=== PATIENT | female | born 1950 | race Caucasian/White ===

== ENCOUNTER 2017-05-22 12:11 | Day surgery (SDC) | payer OTHER ==
[2017-05-20 09:38] VITALS: BMI 35.0
--- NOTE | 2017-05-20 10:37 | PAT Medication Instructions ---
"Service Date May 20, 2017. Current Home Medication List Acetaminophen (Tylenol), 650 MG PO QID PRN for Pain Allopurinol (Zyloprim), 300 MG PO QAM Amlodipine (Norvasc), 5 MG PO QAM Aspirin (Aspirin Ec), 81 MG PO QAM Atorvastatin Calcium (Lipitor), 80 MG PO HS Bupropion (Wellbutrin Sr), 150 MG PO BID Cholecalciferol (Vitamin D), 200 INTUNIT PO QAM Clonidine Hcl (Catapres), 0.1 MG PO BID Ezetimibe (Zetia), 10 MG PO HS Ferrous Sulfate (Kp Ferrous Sulfate), 1 TAB PO BID Fluoxetine (Prozac), 10 MG PO QAM Hydroxyzine Hcl (Atarax), 25 MG PO HS Insulin Aspart (Novolog), 12 UNITS SQ breakfast Insulin Aspart (Novolog), 10 UNITS SQ lunch Insulin Aspart (Novolog), 12 UNITS SQ supper Insulin Glargine (Toujeo Solostar), 45 UNITS SQ lunch Ipratropium-Albuterol (Duoneb), 1 TREATMENT INH Q4H PRN for Shortness of Breath Levothyroxine Sodium (Synthroid), 125 MCG PO QAM Loratadine (Claritin), 10 MG PO QAM Lorazepam (Ativan), 0.5 MG PO TID PRN for prn Metoprolol Tartrate (Lopressor) (Lopressor), 12.5 MG PO BID Mirtazapine (Mirtazapine), 45 MG PO HS Multivitamin (Multivitamin), 1 TAB PO QAM Nystatin/Triamcinolone (Mycolog ||), 1 DOSE TOP BID PRN for prn Ofloxacin (Oph) (Ocuflox Oph Soln), 1 DROPS OP HS Pancrelipase (Lipase-Protease- (Creon), 24,000 UNIT PO TID Pantoprazole (Protonix), 40 MG PO QAM Vitamins C & E (Vitamin C), 500 MG PO BID Zolpidem Tartrate (Zolpidem Tartrate), 1 TAB PO HS Medication Instructions For Your Scheduled Surgery - Per Surgeon's Instructions: Aspirin (Aspirin Ec), 81 MG PO QAM - Hold the following medications 24 hours prior to surgery: Nystatin/Triamcinolone (Mycolog ||), 1 DOSE TOP BID PRN for prn - Hold the following medications the morning of surgery: Loratadine (Claritin), 10 MG PO QAM Multivitamin (Multivitamin), 1 TAB PO QAM Cholecalciferol (Vitamin D), 200 INTUNIT PO QAM Pancrelipase (Lipase-Protease- (Creon), 24,000 UNIT PO TID Vitamin C (Vitamin C), 500 MG PO BID Ferrous Sulfate (Kp Ferrous Sulfate), 1 TAB PO BID Insulin Aspart (Novolog), 12 UNITS SQ breakfast Insulin Aspart (Novolog), 10 UNITS SQ lunch - Take the following medications the morning of surgery with a sip of water OTHERWISE NOTHING TO EAT OR DRINK AFTER MIDNIGHT: Acetaminophen (Tylenol), 650 MG PO QID PRN for Pain (may take if needed up to 4 hours prior to surgery) Allopurinol (Zyloprim), 300 MG PO QAM Amlodipine (Norvasc), 5 MG PO QAM Fluoxetine (Prozac), 10 MG PO QAM Clonidine Hcl (Catapres), 0.1 MG PO BID Ipratropium-Albuterol (Duoneb), 1 TREATMENT INH Q4H PRN for Shortness of Breath Bupropion (Wellbutrin Sr), 150 MG PO BID Metoprolol Tartrate (Lopressor) (Lopressor), 12.5 MG PO BID Lorazepam (Ativan), 0.5 MG PO TID PRN for prn Pantoprazole (Protonix), 40 MG PO QAM Levothyroxine Sodium (Synthroid), 125 MCG PO QAM - Take the following medications as scheduled the night before surgery: Acetaminophen (Tylenol), 650 MG PO QID PRN for Pain Mirtazapine (Mirtazapine), 45 MG PO HS Ezetimibe (Zetia), 10 MG PO HS Hydroxyzine Hcl (Atarax), 25 MG PO HS Zolpidem Tartrate (Zolpidem Tartrate), 1 TAB PO HS Atorvastatin Calcium (Lipitor), 80 MG PO HS Clonidine Hcl (Catapres), 0.1 MG PO BID Ipratropium-Albuterol (Duoneb), 1 TREATMENT INH Q4H PRN for Shortness of Breath Bupropion (Wellbutrin Sr), 150 MG PO BID Metoprolol Tartrate (Lopressor) (Lopressor), 12.5 MG PO BID Lorazepam (Ativan), 0.5 MG PO TID PRN for prn Pancrelipase (Lipase-Protease- (Creon), 24,000 UNIT PO TID Vitamin C (Vitamin C), 500 MG PO BID Ferrous Sulfate (Kp Ferrous Sulfate), 1 TAB PO BID Ofloxacin (Oph) (Ocuflox Oph Soln), 1 DROPS OP HS Insulin Aspart (Novolog), 12 UNITS SQ supper Pt will likely be at [facility] prior to lunchtime, but in the case that she is not... -Check Blood Sugar. If Blood Sugar is GREATER THAN 150, take HALF of regular dose of: Insulin Glargine (Toujeo Solostar) -Check Blood Sugar. If Blood Sugar is LESS THAN 150, DO NOT TAKE ANY: Insulin Glargine (Toujeo Solostar) If you have any questions please call us at [phone] or [phone] or [phone]"
[~2017-05-22] VITALS: Ht 160 cm; Wt 90.2 kg
[~2017-05-22 12:11] MED LIST: ACET-1311 PO; ALLO300T2 PO; AMLO-110 PO; ASPI81TA28 PO; ATOR80TA PO; BUPR-79 PO; CHOL20009 PO; CLINDAMYCIN 600 MG/54 ML D5W IV SCH; CLR10 PO; CTP/1 PO; D5W AND 1/4NSS 1000 ML IV SCH; EZET10TA47 PO; FERR1TAB13 PO; FLUO10CA48 PO; HYDR-3124 PO; INSU1.2I SQ; IPRASOL4 INH; LEVO125T72 PO; LORA-741 PO; METO25TA56 PO; MULT-506 PO; NVLG SQ; NYSTCRE11 TOP; OFLO0.3S OP; PANC6000 PO; PANT40TA PO; RMRS/45 PO; SODIUM CHLORIDE 0.9% 1000ML 1,000 ML IV SCH; VITACAP26 PO; ZOLP5TAB6 PO
--- NOTE | 2017-05-22 13:03 | History and Physical ---
History & Physical Date May 22, 2017. Chief Complaint End stage renal disease History of Present Illness The patient is a 66 year old female with DMII, CKD IV, She had stenting of her right subclavian artery years ago with good results. She now has worsening renal function. She is requiring dialysis and is here for permcath insertion. Pt denies WHITE, dizziness/lightheadedness prior to syncopal episode, R hand claudication or cramping. Also denies fever, chills, recent illness, chest pain , palpitations, SOB, abd pain, N/V, rest pain, claudication, other complaints. Allergies Coded Allergies: Adhesives (Verified Allergy, Intermediate, RASH, 08/05/16) Soap (Verified Allergy, Intermediate, RASH, 08/05/16) Morphine (Verified Allergy, Mild, ineffective, 05/20/17) Cephalosporins (Verified Allergy, Unknown, UNKNOWN, 08/05/16) Codeine (Verified Allergy, Unknown, not sure, 05/20/17) Meperidine (Verified Allergy, Unknown, altered loc, 05/20/17) Nickel (Verified Allergy, Unknown, skin "funny", 05/20/17) Trazodone (Verified Adverse Reaction, Intermediate, AMNESIA, 08/05/16) Home Medications Scheduled Allopurinol (Zyloprim), 300 MG PO QAM Amlodipine (Norvasc), 5 MG PO QAM Aspirin (Aspirin Ec), 81 MG PO QAM Atorvastatin Calcium (Lipitor), 80 MG PO HS Bupropion (Wellbutrin Sr), 150 MG PO BID Cholecalciferol (Vitamin D), 200 INTUNIT PO QAM Clonidine Hcl (Catapres), 0.1 MG PO BID Ezetimibe (Zetia), 10 MG PO HS Ferrous Sulfate (Kp Ferrous Sulfate), 1 TAB PO BID Fluoxetine (Prozac), 10 MG PO QAM Hydroxyzine Hcl (Atarax), 25 MG PO HS Insulin Aspart (Novolog), 12 UNITS SQ breakfast Insulin Aspart (Novolog), 10 UNITS SQ lunch Insulin Aspart (Novolog), 12 UNITS SQ supper Insulin Glargine (Toujeo Solostar), 45 UNITS SQ lunch Levothyroxine Sodium (Synthroid), 125 MCG PO QAM Loratadine (Claritin), 10 MG PO QAM Metoprolol Tartrate (Lopressor) (Lopressor), 12.5 MG PO BID Mirtazapine (Mirtazapine), 45 MG PO HS Multivitamin (Multivitamin), 1 TAB PO QAM Ofloxacin (Oph) (Ocuflox Oph Soln), 1 DROPS OP HS Pancrelipase (Lipase-Protease- (Creon), 24,000 UNIT PO TID Pantoprazole (Protonix), 40 MG PO QAM Vitamins C & E (Vitamin C), 500 MG PO BID Zolpidem Tartrate (Zolpidem Tartrate), 1 TAB PO HS Scheduled PRN Acetaminophen (Tylenol), 650 MG PO QID PRN for Pain Ipratropium-Albuterol (Duoneb), 1 TREATMENT INH Q4H PRN for Shortness of Breath Lorazepam (Ativan), 0.5 MG PO TID PRN for prn Nystatin/Triamcinolone (Mycolog ||), 1 DOSE TOP BID PRN for prn Problem List Medical Problems: (1) Anemia due to chronic kidney disease (2) CKD (chronic kidney disease), stage IV (3) COPD, severe (4) Depression (5) Diabetic neuropathy (6) DM type 2 (diabetes mellitus, type 2) (7) GERD (gastroesophageal reflux disease) (8) HLD (hyperlipidemia) (9) HTN (hypertension) (10) DAYNA (obstructive sleep apnea) (11) Proliferative diabetic retinopathy (12) Subclavian artery stenosis, right Surgical Problems: (1) H/O repair of right rotator cuff (2) History of cataract surgery (3) History of hysterectomy (4) History of tubal ligation (5) S/P angioplasty with stent (6) S/P trigger finger release Surgical / Medical History Hx Cardiac Surgery: No Hx Abdominal Surgery: No (tubal ligation, vag hysterectomy) Hx Cancer Surgery: No Hx Thoracic Surgery: No Hx Orthopedic: Yes (orif left leg and right elbow and then hardware removed, trigger fingers) Hx Urinary Tract Surgery: No Past Medical/Surgical History: COPD, Depression, Diabetes, High Cholesterol, Kidney Disease, Thyroid Disease Family History No pertinent family history Social History Smoking Status: Former Smoker Hx Alcohol Use - Type & Amnt: No Hx Substance Use -Type & Amnt: No Review of Systems Respiratory: No cough, No cyanosis, No LOW, No hemoptysis, No orthopnea, No PND , No short of breath, No sputum production, No stridor, No wheezing, No dyspnea , No problem reported Cardiovascular: No chest pain, No chest tightness, No chest pressure, No palpitations, No syncope, No diaphoresis, No edema, No intermittent claudication , No orthopnea, No cyanosis, No mumur, No lightheadedness, No paroxysmal nocturnal dyspnea, No problem reported Gastrointestinal: No abdominal pain, No constipation, No diarrhea, No nausea, No vomiting, No anorexia, No appetite changes, No belching, No flatulence, No food intolerance, No hematemesis, No hemorrhoids, No hematochezia, No stool changes, No heartburn, No indigestion, No dysphagia, No rectal bleeding, No problem reported Neurologic: No dizziness, No weakness, No headache, No lethargy, No numbness, No paresthesia, No pre-existing deficit, No seizures, No tics, No tingling, No tremors, No vertigo, No memory loss, No LOC, No problem reported Psychiatric: + depression, No anxiety, No alcohol abuse, No auditory hallucinations, No drug abuse, No homicidal ideation, No mood changes, No suicidal ideation, No visual hallucinations, No problem reported Physical Exam Constitutional: General Apperance: overweight Level of Distress: NAD Ambulation: ambulating normally Psychiatric: Mental Status: active & alert, normal mood, normal affect Orientation: oriented except where noted, to time, to place, to person Memory: recent memory normal, remote memory normal Head: normocephalic, atraumatic Lungs: Auscultation: breath sounds normal Cardiovascular: Heart Auscultation: RRR Peripheral Pulses: Radial Pulse: normal on the left, normal on the right Ulnar Pulse: normal on the left, normal on the right Femoral Pulse: normal on the left, normal on the right Abdomen: Inspection & Palpation: soft Musculoskeletal: normal Extremities: Upper Right: no cyanosis, no edema, no varicosities, no palpable cord, no clubbing, no ulcers, no mottling Upper Left: no cyanosis, no edema, no varicosities, no palpable cord, no clubbing, no ulcers, no mottling Lower Right: no cyanosis, no edema, no varicosities, no palpable cord, no clubbing, no ulcers, no mottling Lower Left: no cyanosis, no edema, no varicosities, no palpable cord, no clubbing, no ulcers, no mottling Assessment and Plan Imp: End stage renal disease, not on dialysis Plan: Patient admitted for an insertion of a permcath. I have discussed the risks options and benefits of the procedure with the patient. The patient understands the risks options and benefits and agrees to the procedure.
[2017-05-22 13:09] LABS: BUN/CREATININE RATIO 10.5 (10-20); CALCIUM 8.9 mg/dl (8.5-10.1); CREATININE 4.2 mg/dl (0.60-1.20); POTASSIUM 4.9 mmol/L (3.5-5.1)
[2017-05-22 13:10] VITALS: BP 197/86; PULSE 82; TEMP 36.9; O2SAT 99; Ht 160 cm; Wt 90.2 kg
[2017-05-22] MEDS ORDERED: GLYCOPYRROLATE INJ 0.2 MG/ML VIAL ONE (13:22)
[2017-05-22] MEDS ORDERED: ONDANSETRON INJ 2 MG/ML 2 ML VIAL ONE (13:22)
[2017-05-22] MEDS ORDERED: NEOSTIGMINE METHYLSULFATE 5 MG/5 ML SYR ONE (13:22)
[2017-05-22] MEDS ORDERED: PROPOFOL IV EMULSION 10 MG/ML 20 ML VIAL IV ONE (13:22)
[2017-05-22] MEDS ORDERED: LIDOCAINE HCL 2% 2 ML VIAL (20MG/ML) ONE (13:22)
[2017-05-22] MEDS ORDERED: DEXAMETHASONE SOD INJ 4 MG/ML VIAL ONE (13:22)
[2017-05-22] MEDS ORDERED: ROCURONIUM BROMIDE 10 MG/ML 5 ML VIAL ONE (13:22)
[2017-05-22] MEDS ORDERED: FENTANYL CITRATE INJ 50 MCG/1 ML 2 ML VIAL ONE (13:29)
[2017-05-22] MEDS ORDERED: MIDAZOLAM HCL 1 MG/ML 2ML VIAL ONE (13:29)
[2017-05-22] MEDS ORDERED: KETAMINE HCL INJ 50 MG/ML 10 ML VIAL ONE (13:29)
[2017-05-22] MEDS ORDERED: ATROPINE SULFATE 0.1 MG/ML 5ML SYR IV PRN ×2 (14:45→15:00)
[2017-05-22] MEDS ORDERED: FENTANYL CITRATE INJ 50 MCG/1 ML 2 ML VIAL IV PRN ×2 (14:45→15:00)
[2017-05-22] MEDS ORDERED: EpHEDrine SULFATE INJ 50 MG/ML AMP IV PRN ×2 (14:45→15:00)
[2017-05-22] MEDS ORDERED: PROMETHAZINE HCL INJ 6.25 MG in SODIUM CHLORIDE 0.9% 50ML 50 ML IV PRN (14:45)
[2017-05-22] MEDS ORDERED: ONDANSETRON INJ 2 MG/ML 2 ML VIAL IV PRN ×2 (14:45→15:00)
[2017-05-22] MEDS ORDERED: HEPARIN SOD (PORCINE) 5000 UNIT/ML 1 ML VIAL ONE (14:58)
--- NOTE | 2017-05-22 15:42 | [facility] Operative Report ---
Operative Report Operative Date May 22, 2017. Pre-Operative Diagnosis End Stage Renal Disease Post-Operative Diagnosis Same Procedure(s) Performed Insertion of Perm Catheter, Right Internal Jugular Approach Ultrasound localization of Right Internal Jugular Vein Fluoroscopy for Positoning Surgeon Negra Admission Discharge Rn Surgeon(s) None Estimated Blood Loss 2 Findings tip in distal SVC Specimens None Anesthesia MAC Complication(s) None Disposition Recovery Room / PACU Indications This is a 66-year-old white female with end-stage renal disease in need of an access for dialysis. PermCath was recommended. She understood the risks options and benefits and agreed to go with this procedure. Description of Procedure Patient was takent to the angio suite and placed in the supine position. The right side of the neck and chest wall were prepped and draped in a sterile manner. Local anesthesia was then administered to the appropriate areas of the neck and chest wall. Ultrasound was then used to locate the right internal jugular vein. The vein compressed easily, had no filing defects, and was patent. The vein was then punctured under direct ultrasound imaging. A guidewire was then passed centrally under fluoroscopic imaging. A stab wound was then made in the anterior chest wall and a 19 cm permcath was passed from the stab wound on the chest wall to the puncture site on the neck. The puncture site was then dilated till the 14Fr peel away sheath was inserted. The permcath was then inserted through the sheath to a central position in the distal superior vena cava. The peel away sheath was then removed. The catheter was then sutured in place using nylon sutures. The puncture was then closed using a 4-0 Vicryl subcuticular suture. Dermabond was used for a dressing on the puncture site. Both ports aspirated and flushed easily and were then packed with heparin. A sterile dressing was applied to the catheter. The patient left the angio suite in good condition and tolerated the procedure well. I attest to the content of the Intraoperative Record and any orders documented therein. Any exceptions are noted below.
[2017-05-22] MEDS ORDERED: LABETALOL HCL IV 5 MG/ML 20ML IV ONE (15:55)
--- NOTE | 2017-05-22 15:59 | Anesthesiology Progress Note ---
Anesthesia Post Op Note Date & Time May 22, 2017 at 15:59 Vital Signs Pain Intensity: 0 Vital Signs Past 12 Hours Date Time Temp Pulse Resp B/P (MAP) Pulse Ox O2 Delivery O2 Flow Rate FiO2 05/22/17 13:10 36.9 82 20 197/86 (123) 99 Room Air Notes Mental Status: alert / awake / arousable, participated in evaluation Pt Amnestic to Procedure: Yes Nausea / Vomiting: adequately controlled Pain: adequately controlled Airway Patency, RR, SpO2: stable & adequate BP & HR: stable & adequate Hydration State: stable & adequate Anesthetic Complications: no major complications apparent
[2017-05-22 16:45] VITALS: BP 180/92; PULSE 83; TEMP 36.9; O2SAT 100
[2017-05-22 18:00] VITALS: BP 189/87; PULSE 80; TEMP 37; O2SAT 100
--- NOTE | 2017-05-22 18:58 | Discharge Instructions ---
Discharge Instructions Date of Service May 22, 2017. Visit Reason for Visit: Stage V Chronic Kidney Disease Discharge Discharge Diagnosis / Problem: End stage renal disease Discharge Goals Goal(s): Therapeutic intervention Activity Recommendations Activity Limitations: resume your previous activity Lifting Limitations: none Exercise/Sports Limitations: none Shower/Bathe: keep incision dry Anesthesia . Post Anesthesia Instructions: If you have had General Anesthesia or IV Sedation: * Do not drive today. * Resume driving when surgeon permits. * Do not make important decisions or sign legal documents today. * Call surgeon for: 1. Temperature elevations greater than 101 degrees F. 2. Uncontrollable pain. 3. Excessive bleeding. 4. Persistent nausea and vomiting. 5. Medication intolerance (nausea, vomiting or rash). * For nausea and vomiting use only clear liquids such as: tea, soda, bouillon until nausea subsides, then gradually increase diet as tolerated. * If you have any concerns or questions, call your surgeon's office. If physician is unavailable and it is an emergency, call 911 or go to the nearest emergency room. . Instructions / Follow-Up Instructions / Follow-Up Call [phone] with any questions or concerns. May use permcath for dialysis, call dialysis with questions about catheter care. SPECIAL CARE INSTRUCTIONS: Medications: * Continue to take your medications as directed. If you have been given a prescription for Plavix, please fill it immediately and take as directed. Incision Care: * Your puncture site may have some bruising and minor swelling for about one week. * You will have a small dressing covering your puncture site. You may remove the dressing after 24 hours and shower. You may let the warm soapy water run over it, but be sure to dry the puncture site well and keep it dry. * DO NOT IMMERSE THE INCISION IN A TUB/POOL/etc. UNTIL HEALED. * Puncture sites should be kept covered with a band-aid until it begins to heal. Restrictions: * Depending on whether you leg or arm was punctured to access the arteries, you will be required to lay flat, hold your arm still, or both, for about 4 hours after the procedure to prevent bleeding. * Limit your activity for the first 48 hours. You may walk and go up and down steps. Avoid excessive bending or movement at the puncture site. Possible Complications: * Excessive Swelling - after blood flow is improved you may notice increased swelling in the lower legs. This is a normal response. This usually depends on the amount of blockages in the leg, how long they have been there prior to your procedure and how much blood flow was restored. Elevating your legs will help to improve this. Please notify our office ([phone] ) if the swelling does not go away after lying in bed overnight. * Infection/Drainage/Bleeding - Drainage or bleeding from the puncture site should be minimal. If you have excessive bleeding or drainage, call our office ([phone]) right away. * Pain - You may experience some mild pain or soreness at your puncture site. If your pain does not improve, please contact our office ([phone]). Call your doctor and seek emergent treatment if you develop: * Temperature above 101 degrees * Any fever or chills * Any redness or purulent drainage from the puncture site * Any new dusky/blue colored toes or feet with coolness or sharp or aching pain. SKIN IRRITATION: * You may experience some redness and/or swelling in the area where radiation was administered. If any skin irritation occurs, please contact your family physician. FOLLOW UP VISIT: Keep any scheduled doctor appointments. Diet Recommendations Recommended Home Diet: resume previous diet Procedures Procedures Performed: Insertion of Perm Catheter, Right Internal Jugular Approach Ultrasound localization of Right Internal Jugular Vein Fluoroscopy for Positoning Pending Studies Studies pending at discharge: no Medical Emergencies . Who to Call and When: Medical Emergencies: If at any time you feel your situation is an emergency, please call 911 immediately. . Non-Emergent Contact Non-Emergency issues call your: Surgeon . . "Provider Documentation" section prepared by Toby Omer. .
[2017-05-23] MEDS ORDERED: LIDOCAINE HCL 1% 20 ML VIAL INFIL ONE (07:31)
[2017-05-23] MEDS ORDERED: HEPARIN SOD (PORCINE) 5000 UNIT/ML 1 ML VIAL IV ONE (07:31)
== END 2017-05-22 19:22 | disposition home or self-care (01) ==
LOC: C.ACU 12:11
PROVIDERS: ATTEND Surgery Vascular Surgery
DX: N18.6 End stage renal disease (principal); E11.22 Type 2 diabetes mellitus with diabetic chronic kidney disease; I12.0 Hypertensive chronic kidney disease with stage 5 chronic kidney disease or end stage renal disease; E78.5 Hyperlipidemia, unspecified; J44.9 Chronic obstructive pulmonary disease, unspecified; G47.33 Obstructive sleep apnea (adult) (pediatric); K21.9 Gastro-esophageal reflux disease without esophagitis; E11.40 Type 2 diabetes mellitus with diabetic neuropathy, unspecified; Z79.4 Long term (current) use of insulin; Z79.82 Long term (current) use of aspirin; Z79.899 Other long term (current) drug therapy; Z87.891 Personal history of nicotine dependence

== ENCOUNTER 2017-09-04 12:23 | Emergency (ER) | payer OTHER ==
[~2017-09-04] VITALS: Ht 160 cm; Wt 86.4 kg
[2017-09-04 12:23] VITALS: Ht 160 cm; Wt 86.4 kg
[~2017-09-04 12:23] MED LIST changes: -CLINDAMYCIN 600 MG/54 ML D5W IV SCH; -D5W AND 1/4NSS 1000 ML IV SCH; -SODIUM CHLORIDE 0.9% 1000ML 1,000 ML IV SCH
[2017-09-04] MEDS ORDERED: DEXTROSE 50% 50 ML SYR ONE (12:45)
--- NOTE | 2017-09-04 12:54 | EMERGENCY ROOM VISIT NOTE ---
History Report prepared by Henrry: Taiwo Boston Under the Supervision of: Dr. Hector Caruso D.O. First contact with patient: 12:41 Stated Complaint: HYPOGLYCEMIA History of Present Illness The patient is a 66 year old female who presents to the Emergency Room with complaints of hypoglycemia that was recorded recently. This history is limited secondary to the patient's hypoglycemia. Per EMS and the nursing staff, the patient presents from the [facility] unit secondary to a blood sugar level of 50. She is a Dialysis patient. Source of History: EMS, nursing staff History Limited By: other (Hypoglycemia) Onset: recently Position: other (global) Symptom Intensity: BSG 50 Quality: other (Hypoglycemia) Timing: constant Review of Systems ROS is limited secondary to the patient's hypoglycemia. Past Medical & Surgical Medical Problems: (1) Anemia due to chronic kidney disease (2) CKD (chronic kidney disease), stage IV (3) COPD, severe (4) Depression (5) Diabetic neuropathy (6) DM type 2 (diabetes mellitus, type 2) (7) GERD (gastroesophageal reflux disease) (8) HLD (hyperlipidemia) (9) HTN (hypertension) (10) DAYNA (obstructive sleep apnea) (11) Proliferative diabetic retinopathy (12) Subclavian artery stenosis, right Surgical Problems: (1) H/O repair of right rotator cuff (2) History of cataract surgery (3) History of hysterectomy (4) History of tubal ligation (5) S/P angioplasty with stent (6) S/P trigger finger release Family History No pertinent family history Social History Smoking Status: Former Smoker Alcohol Use: none Drug Use: none Housing Status: lives alone Occupation Status: unemployed Current/Historical Medications Scheduled Allopurinol (Zyloprim), 300 MG PO QAM Amino Acids (Liquacel), 30 ML PO DAILY Amlodipine (Norvasc), 5 MG PO QAM Aspirin (Aspirin Chewable), 81 MG PO DAILY Atorvastatin Calcium (Lipitor), 80 MG PO HS Bupropion (Wellbutrin Sr), 150 MG PO BID Cholecalciferol (Vitamin D), 2,000 INTUNIT PO QAM Clonidine Hcl (Catapres), 0.1 MG PO BID Ezetimibe (Zetia), 10 MG PO HS Fluoxetine (Prozac), 10 MG PO QAM Hydroxyzine Hcl (Atarax), 25 MG PO HS Insulin Aspart (Novolog), 12 UNITS SQ breakfast Insulin Aspart (Novolog), 10 UNITS SQ lunch Insulin Aspart (Novolog), 12 UNITS SQ supper Insulin Glargine (Toujeo Solostar), 50 UNITS SQ lunch Levothyroxine Sodium (Synthroid), 125 MCG PO QAM Lidocaine-Prilocaine (Lidocaine/Prilocaine), 1 APPLN TOP MWF Loratadine (Claritin), 10 MG PO QAM Metoprolol Tartrate (Lopressor) (Lopressor), 12.5 MG PO BID Mirtazapine (Mirtazapine), 45 MG PO HS Pancrelipase (Lipase-Protease- (Creon), 24,000 UNIT PO TID Pantoprazole (Protonix), 40 MG PO QAM Vitamin B Cmplx/Vitc/Folic Ac (Nephrocaps), 1 CAP PO DAILY Vitamins C & E (Vitamin C), 500 MG PO BID Zolpidem Tartrate (Zolpidem Tartrate), 5 MG PO HS Scheduled PRN Acetaminophen (Tylenol), 500 MG PO Q6 PRN for Pain or Fever Benzonatate (Tessalon Perles), 100 MG PO Q6 PRN for Cough Dextrose (Diabetic Use) (Insta-Glucose), 1 APPLN TOP UD PRN for SYMPTOMATIC HYPOGLYCEMIA Glucose-Vitamin C (Dex4), 1-2 TABS PO UD PRN for SYMPTOMATIC HYPOGLYCEMIA Guaifenesin Ext Rel (Mucinex Ext Rel), 600 MG PO BID PRN for COUGH/CONGESTION Ipratropium-Albuterol (Duoneb), 1 TREATMENT INH Q4H PRN for Shortness of Breath Loperamide Hcl (Imodium), 2 MG PO Q4 PRN for Diarrhea Lorazepam (Ativan), 0.5 MG PO TID PRN for Anxiety Nystatin (Nystatin), 1 APPLN TP BID PRN for EXCORIATION Oxycodone HCl (Oxycodone HCl), 5 MG PO Q4 PRN for Pain Polyethylene Glycol 3350 (Miralax), 17 GM PO DAILY PRN for Constipation Triamcinolone Acet (Triamcinolone Acetonide), 1 APPLN TOP BID PRN for IRRITATION Allergies Coded Allergies: Adhesives (Verified Allergy, Intermediate, RASH, 09/04/17) Soap (Verified Allergy, Intermediate, RASH, 05/22/17) Morphine (Verified Allergy, Mild, ineffective, 05/22/17) Cephalosporins (Verified Allergy, Unknown, UNKNOWN, 09/04/17) Codeine (Verified Allergy, Unknown, not sure, 09/04/17) Meperidine (Verified Allergy, Unknown, altered loc, 09/04/17) Nickel (Verified Allergy, Unknown, skin "funny", 09/04/17) Trazodone (Verified Adverse Reaction, Intermediate, AMNESIA, 09/04/17) Physical Exam Vital Signs Date Time Temp Pulse Resp B/P (MAP) Pulse Ox O2 Delivery O2 Flow Rate FiO2 09/04/17 17:22 36.3 75 18 185/110 95 09/04/17 17:21 75 185/110 95 Room Air 09/04/17 16:22 77 18 192/110 97 Room Air 09/04/17 16:20 181/155 09/04/17 14:37 67 97 09/04/17 14:32 09/04/17 14:23 69 96 Nasal Cannula 2.0 09/04/17 14:02 09/04/17 13:53 69 100 Nasal Cannula 2.0 09/04/17 13:23 68 16 135/101 92 Nasal Cannula 2.0 09/04/17 13:23 66 94 Nasal Cannula 2.0 09/04/17 13:20 66 09/04/17 13:09 135/101 09/04/17 12:42 76 16 161/97 94 Nasal Cannula 2.0 09/04/17 12:23 36.3 76 16 161/97 81 Room Air Physical Exam GENERAL: Patient is listless, difficult to arouse, but answers to loud verbal commands. EYES: The conjunctivae are clear. The pupils are round and reactive. EARS, NOSE, MOUTH AND THROAT: The nose is without any evidence of any deformity. Mucous membranes are dry tongue is midline NECK: The neck is nontender and supple. RESPIRATORY: Diminished lung sounds throughout all adams. CARDIOVASCULAR: Regular rate and rhythm noted there no murmurs rubs or gallops normal S1 normal S2 GASTROINTESTINAL: The abdomen is moderately distended but soft. Bowel sounds are present in all quadrants. Abdomen is nontender. No guarding or rigidity. PELVIS: The Pelvis is stable. No tenderness to palpation is noted. BACK: No midline tenderness or or step-off noted range of motion in flexion extension as well as rotation no signs of muscle spasm noted MUSCULOSKELETAL/EXTREMITIES: There is no evidence of gross deformity full range of motion is noted in the hips and shoulders SKIN: Pale and dry. There is no obvious evidence of any rash. Excoriations noted to bilateral lower extremities. There are no petechiae, pallor or cyanosis noted. NEUROLOGIC: Patient is awake alert and oriented x3 strength is symmetric patellar reflexes are 2+ bilaterally Medical Decision & Procedures ER Provider Diagnostic Interpretation: Radiology results as stated below per my review and radiologist interpretation: SINGLE VIEW CHEST CLINICAL HISTORY: Generalized abdominal pain. Hypoglycemia. FINDINGS: An AP, portable, upright chest radiograph is compared to study dated 08/05/2016. The examination is degraded by portable technique and patient rotation. A right internal jugular central venous catheter is new from previous. The tip projects over the SVC. The heart is enlarged and there is atherosclerotic calcification of the thoracic aorta. The pulmonary vasculature is noncongested. Linear atelectasis versus scarring is seen in the left midlung. Chronic interstitial thickening is unchanged. No airspace consolidation, large pleural effusion, or pneumothorax is seen. The skeletal structures are osteopenic. The bony thorax is grossly intact. IMPRESSION: Cardiomegaly with no acute cardiopulmonary abnormality. Electronically signed by: Lenny Xavier M.D. 09/04/2017 2:07 PM Dictated Date/Time: 09/04/2017 2:06 PM AP PELVIS AND LEFT HIP 3 VIEWS CLINICAL HISTORY: left hip pain COMPARISON STUDY: None FINDINGS: No acute fractures or dislocations are visualized. There are minor osteoarthritic changes present within the left hip. There are no erosive or destructive changes. IMPRESSION: 1. No acute fractures 2. No erosive or destructive changes identified 3. Minor age-related degenerative change Electronically signed by: Bogdan Sultana M.D. 09/04/2017 3:27 PM Dictated Date/Time: 09/04/2017 3:[address] HEAD WITHOUT CONTRAST (CT) CLINICAL HISTORY: Altered mental status COMPARISON STUDY: 02/27/2016 TECHNIQUE: Axial CT of the brain is performed from the vertex to the skull base. IV contrast was not administered for this examination. A dose lowering technique was utilized adhering to the principles of ALARA. CT DOSE: 1615.31 mGy.cm FINDINGS: No intra or extra-axial mass lesions are visualized. There is no CT evidence of acute cortical infarction. There is no evidence of midline shift. There is no acute hemorrhage. No calvarial fractures are visualized. There are moderate white matter hypodensities likely on a small vessel basis. There is an area of old right frontal encephalomalacia. There is no evidence of pathologic ventricular dilatation. Chronic sclerotic changes involve the left inferior mastoid. There is opacification of inferior mastoid air cell. IMPRESSION: 1. No acute intracranial findings 2. Old focus of right frontal encephalomalacia 3. Slightly progressive white matter disease likely a small vessel basis Electronically signed by: Bogdan Sultana M.D. 09/04/2017 3:24 PM Dictated Date/Time: 09/04/2017 3:22 PM CERVICAL SPINE W/O CLINICAL HISTORY: 66 years-old Female with altered. Acute altered mental status COMPARISON: CT cervical spine 05/20/2015. TECHNIQUE: Multiple axial CT images of the cervical spine were obtained without contrast. A dose lowering technique was utilized adhering to the principles of ALARA. FINDINGS: There is no acute fracture or subluxation of the cervical spine identified. 2 mm anterolisthesis C4 on C5 is likely on a degenerative basis. Schmorl's nodes are seen at C6-C7, unchanged. Severe intervertebral disc space narrowing at C5-C6 and C6-C7 with multilevel advanced facet arthropathy. Advanced degenerative changes are noted at C1-C2. Increased sclerosis of the left mastoid air cells redemonstrated with small left mastoid effusion, unchanged. Degenerative changes cause multilevel foraminal narrowing without definite severe central canal stenosis identified. At C4-C5, there are apparent mild erosive changes of the facet on the left which appears new from prior exam nicely seen on image 60 series 501 with mild widening of the joint spacer measuring up to 2 mm.. A right internal jugular catheter is partially imaged. No pneumothorax identified. There is atherosclerosis of the carotid bulbs bilaterally. Imaged posterior fossa is unremarkable. IMPRESSION: 1. No acute cervical spine fracture or subluxation identified. 2. Moderate erosive changes of the left facet joint at C4-C5 with mild widening of the joint space, new from prior study 05/20/2015. Underlying inflammatory arthropathy is a differential consideration. 3. Multilevel advanced discogenic degenerative changes and facet arthropathy as above. 2 mm anterolisthesis C4 on C5 is likely secondary to long-standing facet disease. The above report was generated using voice recognition software. It may contain grammatical, syntax or spelling errors. Electronically signed by: Shlomo Peters M.D. 09/04/2017 3:39 PM Dictated Date/Time: 09/04/2017 3:33 PM Laboratory Results 09/04/17 13:37 Red Blood Count 4.53, Mean Corpuscular Volume 92.5, Mean Corpuscular Hemoglobin 30.2, Mean Corpuscular Hemoglobin Concent 32.7, Mean Platelet Volume 11.3, Neutrophils (%) (Auto) 70.2, Lymphocytes (%) (Auto) 19.8, Monocytes (%) (Auto) 6.8, Eosinophils (%) (Auto) 2.6, Basophils (%) (Auto) 0.4, Neutrophils # (Auto) 4.01, Lymphocytes # (Auto) 1.13, Monocytes # (Auto) 0.39, Eosinophils # (Auto) 0.15, Basophils # (Auto) 0.02 09/04/17 13:37 Test 09/04/17 10:10 09/04/17 13:37 09/04/17 13:50 Urine Color DK YELLOW Urine Appearance CLOUDY (CLEAR) Urine pH 5.0 (4.5-7.5) Urine Specific Donnelly 1.026 (1.000-1.030) Urine Protein 4+ (NEG) Urine Glucose (UA) NEG (NEG) Urine Ketones NEG (NEG) Urine Occult Blood NEG (NEG) Urine Nitrite NEG (NEG) Urine Bilirubin NEG (NEG) Urine Urobilinogen NEG (NEG) Urine Leukocyte Esterase NEG (NEG) Urine WBC (Auto) 1-5 /hpf (0-5) Urine RBC (Auto) 0-4 /hpf (0-4) Urine Hyaline Casts (Auto) 1-5 /lpf (0-5) Urine Epithelial Cells (Auto) >30 /lpf (0-5) Urine Bacteria (Auto) NEG (NEG) White Blood Count 5.71 K/uL (4.8-10.8) Red Blood Count 4.53 M/uL (4.2-5.4) Hemoglobin 13.7 g/dL (12.0-16.0) Hematocrit 41.9 % (37-47) Mean Corpuscular Volume 92.5 fL (80-100) Mean Corpuscular Hemoglobin 30.2 pg (25-34) Mean Corpuscular Hemoglobin Concent 32.7 g/dl (32-36) Platelet Count 36 K/uL (130-400) Mean Platelet Volume 11.3 fL (7.4-10.4) Neutrophils (%) (Auto) 70.2 % Lymphocytes (%) (Auto) 19.8 % Monocytes (%) (Auto) 6.8 % Eosinophils (%) (Auto) 2.6 % Basophils (%) (Auto) 0.4 % Neutrophils # (Auto) 4.01 K/uL (1.4-6.5) Lymphocytes # (Auto) 1.13 K/uL (1.2-3.4) Monocytes # (Auto) 0.39 K/uL (0.11-0.59) Eosinophils # (Auto) 0.15 K/uL (0-0.5) Basophils # (Auto) 0.02 K/uL (0-0.2) RDW Standard Deviation 51.2 fL (36.4-46.3) RDW Coefficient of Variation 15.1 % (11.5-14.5) Immature Granulocyte % (Auto) 0.2 % Immature Granulocyte # (Auto) 0.01 K/uL (0.00-0.02) Platelet Estimate DECREASED Prothrombin Time 10.9 SECONDS (9.0-12.0) Prothromb Time International Ratio 1.0 (0.9-1.1) Activated Partial Thromboplast Time 26.4 SECONDS (21.0-31.0) Partial Thromboplastin Ratio 1.0 Anion Gap 11.0 mmol/L (3-11) Est Creatinine Clear Calc Drug Dose 10.8 ml/min Estimated GFR () 9.0 Estimated GFR (Non- 7.8 BUN/Creatinine Ratio 7.6 (10-20) Calcium Level 8.8 mg/dl (8.5-10.1) Total Bilirubin 0.4 mg/dl (0.2-1) Direct Bilirubin mg/dl (0-0.2) Aspartate Amino Transf (AST/SGOT) 36 U/L (15-37) Alanine Aminotransferase (ALT/SGPT) 36 U/L (12-78) Alkaline Phosphatase 155 U/L (45-117) Total Creatine Kinase 79 U/L (26-192) Creatine Kinase MB 1.9 ng/ml (0.5-3.6) Creatine Kinase MB Ratio 2.4 (0-3.0) Troponin I < 0.015 ng/ml (0-0.045) Total Protein 7.4 gm/dl (6.4-8.2) Albumin 3.6 gm/dl (3.4-5.0) Lipase 154 U/L (73-393) Chemistry Specimen Hemolysis Bedside Glucose 149 mg/dl (70-90) Laboratory results per my review. Medications Administered Medications (Trade) Dose Ordered Sig/Samantha Route Start Time Stop Time Status Last Admin Dose Admin Dextrose (Dextrose 50% 50ML Syringe) 50 ml STK-MED ONCE .ROUTE 09/04/17 12:45 09/04/17 12:46 DC 09/04/17 12:57 50 ML ECG Indication: altered mental status Rate (beats per minute): 70 Rhythm: normal sinus Findings: no ectopy, other (No STS abnormalities) Comparison ECG Date: 08/07/16 Change: no significant change ED Course 1241: The patient was evaluated in room C7. A complete history and physical examination were performed. 1423: The patient is now much more awake and is complaining of hip pain. Medical Decision Differential diagnosis: Etiologies such as metabolic, infection, hypoglycemia, electrolyte abnormalities , cardiac sources, intracerebral event, toxicologic, neurologic, as well as others were entertained. Nursing notes reviewed. Additional history is obtained from the prehospital personnel. The patient's group home was also contacted about the patient's condition and her previous mental status. The patient is a 66-year-old female who has a history of diabetes who presented to the emergency department for an evaluation of altered mental status. The patient was found to have significant hypoglycemia. She was treated with oral as well as IV dextrose in the emergency department. She was reevaluated multiple times. On subsequent reevaluation she was significantly improved. I discussed the patient's laboratory and radiographic studies with her. She was able to be discharged back to her group home. She was encouraged to continue all medications as prescribed and not skip any meals. She was also encouraged to return to the emergency department immediately if symptoms change worsen or the need arises. I discussed her case with the emergency department upper caser as well. She was able to contact patient's group home to ensure that they were comfortable with the patient returning at this time. Medication Reconcilliation Current Medication List: was personally reviewed by me Blood Pressure Screening Patient's blood pressure: Normal blood pressure Impression Primary Impression: Altered mental status Additional Impressions: Hypoglycemia Thrombocytopenia Scribe Attestation The scribe's documentation has been prepared under my direction and personally reviewed by me in its entirety. I confirm that the note above accurately reflects all work, treatment, procedures, and medical decision making performed by me. Departure Information Dispostion Home / Self-Care Referrals Mariam Moore C.R.N.P. (PCP) Forms HOME CARE DOCUMENTATION FORM, IMPORTANT VISIT INFORMATION, WORK / SCHOOL INSTRUCTIONS Patient Instructions ED Diabetes Hypoglycemia Insulin React, [facility], Thrombocytopenia Additional Instructions Follow-up with your family for reevaluation. Continue all medications as prescribed. Do not miss any meals. I would also recommend a follow-up appointment with your family doctor to discuss the findings were noted on your head CT and your neck CT today. I would also recommend a repeat CBC because her platelet count was very low today. It was low in the past and will require a recheck to ensure that it is returning back to normal. Problem Qualifiers
[2017-09-04 14:01] LABS: PROTHROMBIN TIME (PATIENT) 10.9 SECONDS (9.0-12.0)
[2017-09-04 14:08] LABS: HEMATOCRIT 41.9 % (37-47); MEAN CELL VOLUME 92.5 fL (80-100); MEAN CORPUSCULAR HEMOGLOBIN 30.2 pg (25-34); MEAN CORPUSCULAR HGB CONC 32.7 g/dl (32-36); MEAN PLATELET VOLUME 11.3 fL (7.4-10.4); PLATELET COUNT 36 K/uL (130-400); RED BLOOD COUNT 4.53 M/uL (4.2-5.4); WHITE BLOOD COUNT 5.71 K/uL (4.8-10.8)
--- NOTE | 2017-09-04 14:08 | DIAGNOSTIC IMAGING REPORT ---
SINGLE VIEW CHEST CLINICAL HISTORY: Generalized abdominal pain. Hypoglycemia. FINDINGS: An AP, portable, upright chest radiograph is compared to study dated 08/05/2016. The examination is degraded by portable technique and patient rotation. A right internal jugular central venous catheter is new from previous. The tip projects over the SVC. The heart is enlarged and there is atherosclerotic calcification of the thoracic aorta. The pulmonary vasculature is noncongested. Linear atelectasis versus scarring is seen in the left midlung. Chronic interstitial thickening is unchanged. No airspace consolidation, large pleural effusion, or pneumothorax is seen. The skeletal structures are osteopenic. The bony thorax is grossly intact. IMPRESSION: Cardiomegaly with no acute cardiopulmonary abnormality. Electronically signed by: Lenny Xavire M.D. 09/04/2017 2:07 PM Dictated Date/Time: 09/04/2017 2:06 PM
[2017-09-04 14:11] LABS: BASO % 0.4 %; BASO ABS # 0.02 K/uL (0-0.2); COMPLETE YES; EOS % 2.6 %; IG% 0.2 %; LYMPH % 19.8 %; LYMPH ABS # 1.13 K/uL (1.2-3.4); MONO % 6.8 %; NEUT % 70.2 %; PLT ESTIMATE DECREASED
[2017-09-04 14:20] LABS: ALKALINE PHOSPHATASE 155 U/L (45-117); ALT/SGPT 36 U/L (12-78); AST/SGOT 36 U/L (15-37); BLOOD UREA NITROGEN 40 mg/dl (7-18); BUN/CREATININE RATIO 7.6 (10-20); CALCIUM 8.8 mg/dl (8.5-10.1); CARBON DIOXIDE 27 mmol/L (21-32); CHLORIDE 99 mmol/L (98-107); CKMB/CK RATIO 2.4 (0-3.0); CREATININE 5.28 mg/dl (0.60-1.20); GLUCOSE 157 mg/dl (70-99); POTASSIUM 4.3 mmol/L (3.5-5.1); SODIUM 137 mmol/L (136-145)
[2017-09-04 14:21] LABS: URINE APPEARANCE CLOUDY (CLEAR); URINE BILIRUBIN NEG (NEG); URINE COLOR DK YELLOW; URINE EPITHELIAL CELL AUTO >30 /lpf (0-5); URINE NITRITE NEG (NEG); URINE SPECIFIC GRAVITY 1.026 (1.000-1.030); UROBILINOGEN NEG (NEG); ZZURINE CULT IF INDIC CATH NO
[2017-09-04 14:25] LABS: MANUAL MICROSCOPIC REQUIRED? NO; REVIEW REQ? NO
[2017-09-04] MEDS ORDERED: B-CO1CAP17 PO (14:28)
[2017-09-04] MEDS ORDERED: AMINLIQ31 PO (14:28)
[2017-09-04] MEDS ORDERED: BENZ100C84 PO (14:28)
[2017-09-04] MEDS ORDERED: DEXT40GE TOP (14:28)
[2017-09-04] MEDS ORDERED: LIDO1CRE16 TOP (14:28)
[2017-09-04] MEDS ORDERED: DEXT4CHW64 PO (14:28)
[2017-09-04] MEDS ORDERED: ASPCH81X PO (14:28)
[2017-09-04] MEDS ORDERED: POLY335019 PO (14:28)
[2017-09-04] MEDS ORDERED: IMD/2 PO (14:28)
[2017-09-04] MEDS ORDERED: RXC/5 PO (14:28)
[2017-09-04] MEDS ORDERED: ACET-1256 PO (14:28)
[2017-09-04] MEDS ORDERED: NYSCR15 TP (14:28)
[2017-09-04] MEDS ORDERED: GUAI1TAB55 PO (14:28)
[2017-09-04] MEDS ORDERED: TRMCR115 TOP (14:30)
--- NOTE | 2017-09-04 15:25 | DIAGNOSTIC IMAGING REPORT ---
CT HEAD WITHOUT CONTRAST (CT) CLINICAL HISTORY: Altered mental status COMPARISON STUDY: 02/27/2016 TECHNIQUE: Axial CT of the brain is performed from the vertex to the skull base. IV contrast was not administered for this examination. A dose lowering technique was utilized adhering to the principles of ALARA. CT DOSE: 1615.31 mGy.cm FINDINGS: No intra or extra-axial mass lesions are visualized. There is no CT evidence of acute cortical infarction. There is no evidence of midline shift. There is no acute hemorrhage. No calvarial fractures are visualized. There are moderate white matter hypodensities likely on a small vessel basis. There is an area of old right frontal encephalomalacia. There is no evidence of pathologic ventricular dilatation. Chronic sclerotic changes involve the left inferior mastoid. There is opacification of inferior mastoid air cell. IMPRESSION: 1. No acute intracranial findings 2. Old focus of right frontal encephalomalacia 3. Slightly progressive white matter disease likely a small vessel basis Electronically signed by: Bogdan Sultana M.D. 09/04/2017 3:24 PM Dictated Date/Time: 09/04/2017 3:22 PM
--- NOTE | 2017-09-04 15:28 | DIAGNOSTIC IMAGING REPORT ---
AP PELVIS AND LEFT HIP 3 VIEWS CLINICAL HISTORY: left hip pain COMPARISON STUDY: None FINDINGS: No acute fractures or dislocations are visualized. There are minor osteoarthritic changes present within the left hip. There are no erosive or destructive changes. IMPRESSION: 1. No acute fractures 2. No erosive or destructive changes identified 3. Minor age-related degenerative change Electronically signed by: Bogdan Sultana M.D. 09/04/2017 3:27 PM Dictated Date/Time: 09/04/2017 3:26 PM
--- NOTE | 2017-09-04 15:40 | DIAGNOSTIC IMAGING REPORT ---
CERVICAL SPINE W/O CLINICAL HISTORY: 66 years-old Female with altered. Acute altered mental status COMPARISON: CT cervical spine 05/20/2015. TECHNIQUE: Multiple axial CT images of the cervical spine were obtained without contrast. A dose lowering technique was utilized adhering to the principles of ALARA. FINDINGS: There is no acute fracture or subluxation of the cervical spine identified. 2 mm anterolisthesis C4 on C5 is likely on a degenerative basis. Schmorl's nodes are seen at C6-C7, unchanged. Severe intervertebral disc space narrowing at C5-C6 and C6-C7 with multilevel advanced facet arthropathy. Advanced degenerative changes are noted at C1-C2. Increased sclerosis of the left mastoid air cells redemonstrated with small left mastoid effusion, unchanged. Degenerative changes cause multilevel foraminal narrowing without definite severe central canal stenosis identified. At C4-C5, there are apparent mild erosive changes of the facet on the left which appears new from prior exam nicely seen on image 60 series 501 with mild widening of the joint spacer measuring up to 2 mm.. A right internal jugular catheter is partially imaged. No pneumothorax identified. There is atherosclerosis of the carotid bulbs bilaterally. Imaged posterior fossa is unremarkable. IMPRESSION: 1. No acute cervical spine fracture or subluxation identified. 2. Moderate erosive changes of the left facet joint at C4-C5 with mild widening of the joint space, new from prior study 05/20/2015. Underlying inflammatory arthropathy is a differential consideration. 3. Multilevel advanced discogenic degenerative changes and facet arthropathy as above. 2 mm anterolisthesis C4 on C5 is likely secondary to long-standing facet disease. The above report was generated using voice recognition software. It may contain grammatical, syntax or spelling errors. Electronically signed by: Shlomo Peters M.D. 09/04/2017 3:39 PM Dictated Date/Time: 09/04/2017 3:33 PM
[2017-09-04 17:22] VITALS: BP 185/110; PULSE 75; TEMP 36.3; O2SAT 95
== END 2017-09-04 17:23 | disposition home or self-care (01) ==
LOC: EDBD 12:23 → C.EDC 12:25
DX: R41.82 Altered mental status, unspecified (principal); E11.649 Type 2 diabetes mellitus with hypoglycemia without coma; D69.6 Thrombocytopenia, unspecified; E11.3591 Type 2 diabetes mellitus with proliferative diabetic retinopathy without macular edema, right eye; E11.40 Type 2 diabetes mellitus with diabetic neuropathy, unspecified; I12.9 Hypertensive chronic kidney disease with stage 1 through stage 4 chronic kidney disease, or unspecified chronic kidney disease; E11.22 Type 2 diabetes mellitus with diabetic chronic kidney disease; E78.5 Hyperlipidemia, unspecified; F32.9 Major depressive disorder, single episode, unspecified; K21.9 Gastro-esophageal reflux disease without esophagitis; N18.4 Chronic kidney disease, stage 4 (severe); J44.9 Chronic obstructive pulmonary disease, unspecified; Z87.891 Personal history of nicotine dependence; Z99.2 Dependence on renal dialysis; Z98.49 Cataract extraction status, unspecified eye; Z90.710 Acquired absence of both cervix and uterus; Z98.51 Tubal ligation status; Z98.890 Other specified postprocedural states; Z79.4 Long term (current) use of insulin; Z79.82 Long term (current) use of aspirin; Z79.899 Other long term (current) drug therapy

== ENCOUNTER 2017-09-23 08:41 | Day surgery (SDC) | payer OTHER ==
[~2017-09-23] VITALS: Ht 160 cm; Wt 85.0 kg
--- NOTE | 2017-09-23 06:34 | History and Physical ---
History & Physical Date of Service Sep 23, 2017. History & Physical CCf: End stage renal disease, functioning fistula History of Present Illness The patient is a 66 year old female with DMII, CKD IV, She had stenting of her right subclavian artery years ago with good results. She now has worsening renal function. She had a permcath inserted for dialysis. She has a functioning fistula. She is her for removal of the permcath. Pt denies WHITE, dizziness/lightheadedness prior to syncopal episode, R hand claudication or cramping. Also denies fever, chills, recent illness, chest pain, palpitations, SOB, abd pain, N/V, rest pain, claudication, other complaints. Allergies Coded Allergies: Adhesives (Verified Allergy, Intermediate, RASH, 08/05/16) Soap (Verified Allergy, Intermediate, RASH, 08/05/16) Morphine (Verified Allergy, Mild, ineffective, 05/20/17) Cephalosporins (Verified Allergy, Unknown, UNKNOWN, 08/05/16) Codeine (Verified Allergy, Unknown, not sure, 05/20/17) Meperidine (Verified Allergy, Unknown, altered loc, 05/20/17) Nickel (Verified Allergy, Unknown, skin "funny", 05/20/17) Trazodone (Verified Adverse Reaction, Intermediate, AMNESIA, 08/05/16) Home Medications Scheduled Allopurinol (Zyloprim), 300 MG PO QAM Amlodipine (Norvasc), 5 MG PO QAM Aspirin (Aspirin Ec), 81 MG PO QAM Atorvastatin Calcium (Lipitor), 80 MG PO HS Bupropion (Wellbutrin Sr), 150 MG PO BID Cholecalciferol (Vitamin D), 200 INTUNIT PO QAM Clonidine Hcl (Catapres), 0.1 MG PO BID Ezetimibe (Zetia), 10 MG PO HS Ferrous Sulfate (Kp Ferrous Sulfate), 1 TAB PO BID Fluoxetine (Prozac), 10 MG PO QAM Hydroxyzine Hcl (Atarax), 25 MG PO HS Insulin Aspart (Novolog), 12 UNITS SQ breakfast Insulin Aspart (Novolog), 10 UNITS SQ lunch Insulin Aspart (Novolog), 12 UNITS SQ supper Insulin Glargine (Toujeo Solostar), 45 UNITS SQ lunch Levothyroxine Sodium (Synthroid), 125 MCG PO QAM Loratadine (Claritin), 10 MG PO QAM Metoprolol Tartrate (Lopressor) (Lopressor), 12.5 MG PO BID Mirtazapine (Mirtazapine), 45 MG PO HS Multivitamin (Multivitamin), 1 TAB PO QAM Ofloxacin (Oph) (Ocuflox Oph Soln), 1 DROPS OP HS Pancrelipase (Lipase-Protease- (Creon), 24,000 UNIT PO TID Pantoprazole (Protonix), 40 MG PO QAM Vitamins C & E (Vitamin C), 500 MG PO BID Zolpidem Tartrate (Zolpidem Tartrate), 1 TAB PO HS Scheduled PRN Acetaminophen (Tylenol), 650 MG PO QID PRN for Pain Ipratropium-Albuterol (Duoneb), 1 TREATMENT INH Q4H PRN for Shortness of Breath Lorazepam (Ativan), 0.5 MG PO TID PRN for prn Nystatin/Triamcinolone (Mycolog ||), 1 DOSE TOP BID PRN for prn Problem List Medical Problems: (1) Anemia due to chronic kidney disease (2) CKD (chronic kidney disease), stage IV (3) COPD, severe (4) Depression (5) Diabetic neuropathy (6) DM type 2 (diabetes mellitus, type 2) (7) GERD (gastroesophageal reflux disease) (8) HLD (hyperlipidemia) (9) HTN (hypertension) (10) DAYNA (obstructive sleep apnea) (11) Proliferative diabetic retinopathy (12) Subclavian artery stenosis, right Surgical Problems: (1) H/O repair of right rotator cuff (2) History of cataract surgery (3) History of hysterectomy (4) History of tubal ligation (5) S/P angioplasty with stent (6) S/P trigger finger release Surgical / Medical History Hx Cardiac Surgery: No Hx Abdominal Surgery: No (tubal ligation, vag hysterectomy) Hx Cancer Surgery: No Hx Thoracic Surgery: No Hx Orthopedic: Yes (orif left leg and right elbow and then hardware removed, trigger fingers) Hx Urinary Tract Surgery: No Past Medical/Surgical History: COPD, Depression, Diabetes, High Cholesterol, Kidney Disease, Thyroid Disease Family History No pertinent family history Social History Smoking Status: Former Smoker Hx Alcohol Use - Type & Amnt: No Hx Substance Use -Type & Amnt: No Review of Systems Respiratory: No cough, No cyanosis, No LOW, No hemoptysis, No orthopnea, No PND , No short of breath, No sputum production, No stridor, No wheezing, No dyspnea , No problem reported Cardiovascular: No chest pain, No chest tightness, No chest pressure, No palpitations, No syncope, No diaphoresis, No edema, No intermittent claudication , No orthopnea, No cyanosis, No mumur, No lightheadedness, No paroxysmal nocturnal dyspnea, No problem reported Gastrointestinal: No abdominal pain, No constipation, No diarrhea, No nausea, No vomiting, No anorexia, No appetite changes, No belching, No flatulence, No food intolerance, No hematemesis, No hemorrhoids, No hematochezia, No stool changes, No heartburn, No indigestion, No dysphagia, No rectal bleeding, No problem reported Neurologic: No dizziness, No weakness, No headache, No lethargy, No numbness, No paresthesia, No pre-existing deficit, No seizures, No tics, No tingling, No tremors, No vertigo, No memory loss, No LOC, No problem reported Psychiatric: + depression, No anxiety, No alcohol abuse, No auditory hallucinations, No drug abuse, No homicidal ideation, No mood changes, No suicidal ideation, No visual hallucinations, No problem reported Physical Exam Constitutional: General Apperance: overweight Level of Distress: NAD Ambulation: ambulating normally Psychiatric: Mental Status: active & alert, normal mood, normal affect Orientation: oriented except where noted, to time, to place, to person Memory: recent memory normal, remote memory normal Head: normocephalic, atraumatic Lungs: Auscultation: breath sounds normal Cardiovascular: Heart Auscultation: RRR Peripheral Pulses: Radial Pulse: normal on the left, normal on the right Ulnar Pulse: normal on the left, normal on the right Femoral Pulse: normal on the left, normal on the right Abdomen: Inspection & Palpation: soft Musculoskeletal: normal Extremities: Upper Right: no cyanosis, no edema, no varicosities, no palpable cord, no clubbing, no ulcers, no mottling Upper Left: no cyanosis, no edema, no varicosities, no palpable cord, no clubbing, no ulcers, no mottling Lower Right: no cyanosis, no edema, no varicosities, no palpable cord, no clubbing, no ulcers, no mottling Lower Left: no cyanosis, no edema, no varicosities, no palpable cord, no clubbing, no ulcers, no mottling Assessment and Plan Imp: End stage renal disease, functioning fistula Plan: Patient admitted for removal of a permcath. I have discussed the risks options and benefits of the procedure with the patient. The patient understands the risks options and benefits and agrees to the procedure.
[~2017-09-23 08:41] MED LIST changes: +ACET-1256 PO; -ACET-1311 PO; +AMINLIQ31 PO; +ASPCH81X PO; -ASPI81TA28 PO; +B-CO1CAP17 PO; +BENZ100C84 PO; +DEXT40GE TOP; +DEXT4CHW64 PO; -FERR1TAB13 PO; +GUAI1TAB55 PO; +IMD/2 PO; +LIDO1CRE16 TOP; -MULT-506 PO; +NYSCR15 TP; -NYSTCRE11 TOP; -OFLO0.3S OP; +POLY335019 PO; +RXC/5 PO; +TRMCR115 TOP
[2017-09-23 09:28] VITALS: BP 109/59; PULSE 71; TEMP 36.6; O2SAT 100; Ht 160 cm; Wt 85.0 kg
--- NOTE | 2017-09-23 09:39 | History & Physical Bridge Note ---
H&P Re-Evaluation Bridge Note: I have examined the patient, reviewed the History & Physical and in the interval since the performance of the History & Physical I have noted the following changes of clinical significance: No changes noted
[2017-09-23 10:00] VITALS: BP 109/59; PULSE 71; TEMP 36.6; O2SAT 100
[2017-09-23] MEDS ORDERED: LIDOCAINE HCL 1% 20 ML VIAL INJ ONE (10:24)
[2017-09-23] MEDS ORDERED: ARISTA ABSORBABLE HEMOSTAT 3GM TOP ONE (10:28)
--- NOTE | 2017-09-23 10:29 | [facility] Post Operative Brief Note ---
Immediate Operative Summary Operative Date Sep 23, 2017. Pre-Operative Diagnosis functioning fistula Post-Operative Diagnosis same Procedure(s) Performed Removal Of Perm Catheter Surgeon Dr. Omer English Language Learner Tutor Surgeon(s) Charisse Upton MD Estimated Blood Loss 2 ml Findings cuff and catheter removed Specimens A. explanted perm catheter Anesthesia Local Complication(s) None Disposition
--- NOTE | 2017-09-23 10:30 | Discharge Instructions ---
Discharge Instructions Date of Service Sep 23, 2017. Visit Reason for Visit: End Stage Renal Disease -On Hemodialysis Discharge Discharge Diagnosis / Problem: Functioning fistula Discharge Goals Goal(s): Therapeutic intervention Activity Recommendations Activity Limitations: per Instructions/Follow-up section Shower/Bathe: tomorrow Anesthesia . Post Anesthesia Instructions: If you have had General Anesthesia or IV Sedation: * Do not drive today. * Resume driving when surgeon permits. * Do not make important decisions or sign legal documents today. * Call surgeon for: 1. Temperature elevations greater than 101 degrees F. 2. Uncontrollable pain. 3. Excessive bleeding. 4. Persistent nausea and vomiting. 5. Medication intolerance (nausea, vomiting or rash). * For nausea and vomiting use only clear liquids such as: tea, soda, bouillon until nausea subsides, then gradually increase diet as tolerated. * If you have any concerns or questions, call your surgeon's office. If physician is unavailable and it is an emergency, call 911 or go to the nearest emergency room. . Instructions / Follow-Up Instructions / Follow-Up SPECIAL CARE INSTRUCTIONS: Medications: * Continue to take your medications as directed. If you have been given a prescription for Plavix, please fill it immediately and take as directed. Incision Care: * Your puncture site may have some bruising and minor swelling for about one week. * You will have a small dressing covering your puncture site. You may remove the dressing after 24 hours and shower. You may let the warm soapy water run over it, but be sure to dry the puncture site well and keep it dry. * DO NOT IMMERSE THE INCISION IN A TUB/POOL/etc. UNTIL HEALED. * Puncture sites should be kept covered with a band-aid until it begins to heal. Restrictions: * Depending on whether you leg or arm was punctured to access the arteries, you will be required to lay flat, hold your arm still, or both, for about 4 hours after the procedure to prevent bleeding. * Limit your activity for the first 48 hours. You may walk and go up and down steps. Avoid excessive bending or movement at the puncture site. Possible Complications: * Excessive Swelling - after blood flow is improved you may notice increased swelling in the lower legs. This is a normal response. This usually depends on the amount of blockages in the leg, how long they have been there prior to your procedure and how much blood flow was restored. Elevating your legs will help to improve this. Please notify our office ([phone] ) if the swelling does not go away after lying in bed overnight. * Infection/Drainage/Bleeding - Drainage or bleeding from the puncture site should be minimal. If you have excessive bleeding or drainage, call our office ([phone]) right away. * Pain - You may experience some mild pain or soreness at your puncture site. If your pain does not improve, please contact our office ([phone]). Call your doctor and seek emergent treatment if you develop: * Temperature above 101 degrees * Any fever or chills * Any redness or purulent drainage from the puncture site * Any new dusky/blue colored toes or feet with coolness or sharp or aching pain. SKIN IRRITATION: * You may experience some redness and/or swelling in the area where radiation was administered. If any skin irritation occurs, please contact your family physician. FOLLOW UP VISIT: Keep any scheduled doctor appointments. Diet Recommendations Recommended Home Diet: resume previous diet Procedures Procedures Performed: Removal Of Perm Catheter Pending Studies Studies pending at discharge: no Medical Emergencies . Who to Call and When: Medical Emergencies: If at any time you feel your situation is an emergency, please call 911 immediately. . Non-Emergent Contact Non-Emergency issues call your: Surgeon . . "Provider Documentation" section prepared by Toby Omer. .
--- NOTE | 2017-09-23 10:33 | [facility] Operative Report ---
Operative Report Operative Date Sep 23, 2017. Pre-Operative Diagnosis functioning fistula Post-Operative Diagnosis same Procedure(s) Performed Removal Of Perm Catheter Surgeon Dr. Omer Technical Writing Lead/Mgr Surgeon(s) Charisse Upton MD Estimated Blood Loss 2 ml Findings Perm cath removed intact, well incorporated Specimens A. explanted perm catheter Drains none Anesthesia Local Complication(s) None Disposition Indications Functioning fistula, no longer need for perm-cath Description of Procedure The patient was taken to the angio suite and placed in the supine position. The right side of the neck, chest wall and catheter were prepped and draped in a sterile manner. Local anesthesia was then accomplished. Using sharp and blunt dissection, the cuff of the permcath was freed up from the surrounding fibrous tissue. The permcath and cuff were completely removed. Pressure was then applied and adequate hemostasis was obtained. A sterile dressing was then applied. The patient left the angio suite in good condition and tolerated the procedure well. I, Dr. Omer was present and scrubbed for the entire procedure. I attest to the content of the Intraoperative Record and any orders documented therein. Any exceptions are noted below.
[2017-09-23 10:50] VITALS: BP 135/68; PULSE 73; TEMP 36.8; O2SAT 98
[2017-09-23 11:25] VITALS: BP 115/54; PULSE 73; O2SAT 100
[2017-09-23 11:53] VITALS: BP 104/56; PULSE 72; TEMP 36.8; O2SAT 99
== END 2017-09-23 12:08 | disposition home or self-care (01) ==
LOC: C.ACU 08:41
PROVIDERS: ATTEND Surgery Vascular Surgery
DX: Z45.2 Encounter for adjustment and management of vascular access device (principal); E11.22 Type 2 diabetes mellitus with diabetic chronic kidney disease; N18.6 End stage renal disease; I12.0 Hypertensive chronic kidney disease with stage 5 chronic kidney disease or end stage renal disease; D63.1 Anemia in chronic kidney disease; E11.40 Type 2 diabetes mellitus with diabetic neuropathy, unspecified; E11.3599 Type 2 diabetes mellitus with proliferative diabetic retinopathy without macular edema, unspecified eye; I70.208 Unspecified atherosclerosis of native arteries of extremities, other extremity; E78.5 Hyperlipidemia, unspecified; K21.9 Gastro-esophageal reflux disease without esophagitis; G47.33 Obstructive sleep apnea (adult) (pediatric); J44.9 Chronic obstructive pulmonary disease, unspecified; E07.9 Disorder of thyroid, unspecified; F32.9 Major depressive disorder, single episode, unspecified; Z87.891 Personal history of nicotine dependence; Z79.4 Long term (current) use of insulin; Z79.82 Long term (current) use of aspirin; Z79.899 Other long term (current) drug therapy